=== PATIENT | female | born 2005 | race Caucasian/White ===

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

== ENCOUNTER 2023-05-22 19:46 | Emergency (ER) | payer OTHER, SELFPAY ==
[2023-05-22 19:47] VITALS: BP 127/71; PULSE 72; RESP 12; TEMP 36.8; O2SAT 98; BMI 24.9
--- NOTE | 2023-05-22 19:55 | HMH.EDGENADL ---
Discharge Plan Disposition Patient Disposition: Home, Self-Care Prescriptions Prescriptions: No Action Classic 28 mg iron- 800 mcg tablet 1 tab PO DAILY ferrous sulfate 325 mg (65 mg iron) tablet 325 mg PO DAILY ferrous sulfate 325 mg (65 mg iron) Tablet 325 mg PO BID Qty: 60 1RF ibuprofen 400 mg Tablet 800 mg PO Q6HP PRN (Reason: Mild To Moderate Pain) Qty: 30 1RF Referrals Follow up/Referrals: Santiago Prasad MD [Primary Care Provider] - See instructions Activity Restrictions/Add. Instructions Additional Instructions/Restrictions: Please follow-up with your primary care provider. Please return to the emergency department if you develop any new or worsening symptoms or become concerned for your health. Clinical Impressions Clinical Impression: Traumatic ecchymosis of hand Qualifiers: Encounter type: initial encounter Laterality: right Qualified Code(s): S60.221A - Contusion of right hand, initial encounter Discharge ED Provider: Beto Girard General Adult HPI General Chief complaint: Extremity Injury, Upper Stated complaint: [id number] LT hand inj Time Seen by Provider: 05/22/23 19:49 History of Present Illness HPI narrative: 18-year-old female previously healthy presents with left hand pain and swelling after punching a wall. Reports no numbness or tingling. Orts pain with range of motion. Denies other injuries. Related Data Home Medications Medication Instructions Recorded Confirmed vits no.126-ferrous fum 1 tab PO DAILY Supplement 10/13/21 07/03/22 28 mg iron-folic acid 800 mcg tablet (Classic ) ferrous sulfate 325 mg (65 mg 325 mg PO DAILY Supplement 05/11/22 07/03/22 iron) tablet Previous Rx's Medication Instructions Recorded ferrous sulfate 325 mg (65 mg 325 mg PO BID #60 tabs 05/14/22 iron) tablet ibuprofen 400 mg tablet 800 mg PO Q6HP PRN Mild To 05/14/22 Moderate Pain #30 tabs Allergies Allergy/AdvReac Type Severity Reaction Status Date / Time No Known Allergies Allergy Verified 07/03/22 16:14 [facility] Disclaimer: The information contained in this section may have been updated after the patient was seen, as this information can be updated by other users. Medical History (Updated 05/22/23 @ 20:36 by Beto Girard MD) Allergic rhinitis Urinary tract infection XXY identified by routine karyotyping Surgical History History of tympanostomy tube placement Social History Smoking Status: Current every day smoker alcohol intake: never substance use type: denies use current occupational status: employed Travel in the last 8 weeks: None household members: family ROS Obtained: Yes All systems reviewed & no additional complaints except as documented Physical Exam General General appearance: alert and in no apparent distress Head Head exam: atraumatic and normocephalic Eye Eye exam: Present normal appearance, PERRL and EOMI ENT ENT exam: Present normal oropharynx and normal external ear exam Neck Neck exam: Present normal inspection and full ROM Chest Chest inspection: Present normal inspection and symmetric chest wall rise; Absent tenderness Respiratory Respiratory exam: Present normal lung sounds bilaterally; Absent respiratory distress Cardiovascular Cardiovascular exam: Present regular rate and normal rhythm Abdominal Exam Abdominal exam: Present soft; Absent distention, tenderness or guarding Extremities Exam Extremities exam: Present other (Focal swelling over left MCP. Intact distal neurovascular exam, no evidence of ligamentous injury) Back Exam Back exam: Present normal inspection; Absent tenderness Neurological Exam Neurological exam: Present alert and oriented X3; Absent motor sensory deficit Psychiatric Psychiatric exam: Present normal affect and normal mood Skin Skin exam:
--- NOTE | 2023-05-22 20:00 | XR_ITS ---
PROCEDURE INFORMATION: Exam: XR Left Hand Exam date and time: 05/22/2023 8:00 PM Age: 18 years old Clinical indication: Injury or trauma; Other: Punching injury; Blunt trauma (contusions or hematomas); Hand; Left; Additional info: Punching injury, 3rd mcp joint pain TECHNIQUE: Imaging protocol: Radiologic exam of the left hand. Views: 3 or more views. COMPARISON: No relevant prior studies available. FINDINGS: Bones/joints: Normal. Soft tissues: Normal. IMPRESSION: No acute findings.
[2023-05-22 20:41] VITALS: BP 109/72; PULSE 80; RESP 16; TEMP 36.8; O2SAT 97
== END 2023-05-22 20:42 | disposition home or self-care (01) ==
PROVIDERS: Emergency Provider Emergency Medicine; PCP Family Medicine
DX: S60.222A Contusion of left hand, initial encounter (principal); J30.9 Allergic rhinitis, unspecified; W22.8XXA Striking against or struck by other objects, initial encounter
CPT/HCPCS: 73130; 99283

== ENCOUNTER 2023-05-28 07:17 | Emergency (ER) | payer OTHER, SELFPAY ==
[2023-05-28 07:26] VITALS: BP 112/68; PULSE 91; O2SAT 97
[2023-05-28 07:27] VITALS: BP 112/68; PULSE 86; RESP 19; TEMP 36.8; O2SAT 97; BMI 24.9
[2023-05-28 07:28] LABS: Coronavirus 19, PCR Not Detected (NotDetected); Influenza A, PCR Not Detected (NotDetected); Influenza B, PCR Not Detected (NotDetected)
[2023-05-28 07:30] VITALS: BP 109/68; PULSE 94; O2SAT 96
[2023-05-28 07:36] LABS: Microscopic, Urine URINE MICROSCOPIC (MICROSCOPIC)
--- NOTE | 2023-05-28 07:37 | ED_ITS ---
Discharge Plan Disposition Patient Disposition: Home, Self-Care Condition: Good Prescriptions Prescriptions: New ondansetron 4 mg tablet,disintegrating 4 mg PO Q8H PRN (Reason: nausea and vomiting) 4 Days Qty: 12 0RF No Action buspirone 7.5 mg tablet 7.5 mg PO BID Patient Comments: TAKE 1 TABLET BY MOUTH TWICE DAILY Referrals Follow up/Referrals: Santiago Prasad MD [Primary Care Provider] - See instructions Activity Restrictions/Add. Instructions Additional Instructions/Restrictions: You were evaluated in the emergency department today. You tested negative for COVID, flu, and strep, but we feel that you likely have an upper respiratory infection. Please follow-up closely with your primary care provider. Take Tylenol and ibuprofen at home as needed for pain. We are providing you a prescription for Zofran to take as needed for nausea and vomiting. Hydrate is much as possible. Return to the emergency department for new or worsening symptoms. Clinical Impressions Clinical Impression: Acute viral syndrome Stand Alone Forms Stand Alone Forms: Work/School Release Instructions Patient Instructions: DI for Viral Syndrome Discharge ED Provider: Khadijah Joiner General Adult HPI General Chief complaint: Upper Respiratory Infection Stated complaint: vomitting, headache, body aches Time Seen by Provider: 05/28/23 07:23 Mode of Arrival: Ambulatory Source of Information: Patient Limitations: No Limitations Description of Symptoms (Recalled from ER Triage Doc. by RN): pt to ed c/o vomiting and body aches that started this morning. pt states shes had a flu exposure at work. History of Present Illness HPI narrative: This patient is a 18-year-old female who denies significant past medical history presenting to the emergency department for evaluation with concern for headache and vomiting that started this morning. She states that she woke up with bodyaches and it took her longer to get out of bed than normal. She states that she has been exposed to flu at work, and multiple people of tested positive at work. She complains of mild cough and congestion, but no sore throat, significant abdominal pain, dysuria, polyuria, changes bowel movements, or other concerns. Related Data Home Medications Medication Instructions Recorded Confirmed buspirone 7.5 mg tablet 7.5 mg PO BID 05/28/23 05/28/23 Previous Rx's Medication Instructions Recorded ondansetron 4 mg disintegrating 4 mg PO Q8H PRN nausea and 05/28/23 tablet vomiting 4 days #12 tabs Allergies Allergy/AdvReac Type Severity Reaction Status Date / Time No Known Allergies Allergy Verified 07/03/22 16:14 [facility] Disclaimer: The information contained in this section may have been updated after the patient was seen, as this information can be updated by other users. Medical History Allergic rhinitis Urinary tract infection XXY identified by routine karyotyping Surgical History History of tympanostomy tube placement Social History Smoking Status: Never smoker alcohol intake: never substance use type: denies use current occupational status: employed Travel in the last 8 weeks: None household members: family ROS Obtained: Yes All systems reviewed & no additional complaints except as documented Physical Exam General General appearance: alert and in no apparent distress Head Head exam: atraumatic and normocephalic Eye Eye exam: Present normal appearance, PERRL and EOMI ENT ENT exam: Present normal exam, normal oropharynx, mucous membranes moist and normal external ear exam Neck Neck exam: Present normal inspection, full ROM and trachea midline; Absent tenderness Chest Chest inspection: Present normal inspection and symmetric chest wall rise; Absent tenderness Respiratory Respiratory exam: Present normal lung sounds bilaterally; Absent respiratory distress, wheezes, stridor or accessory muscle use Cardiovascular Cardiovascular exam: Present regular rate and normal rhythm Abdominal Exam Abdominal exam: Present soft; Absent distention, tenderness or guarding Extremities Exam Extremities exam: Present normal inspection, full ROM and normal capillary refill; Absent tenderness or edema Back Exam Back exam: Present normal inspection and full ROM; Absent tenderness Neurological Exam Neurological exam: Present alert, oriented X3, CN II-XII intact and normal gait; Absent motor sensory deficit Psychiatric Psychiatric exam: Present normal affect and normal mood Skin Skin exam: Present warm and dry Medical Decision Making Medical Records Medical records reviewed: Yes I reviewed the patient's medical records. Rudy Inquiry Pt receiving controlled substance: No Vital Signs: 05/28/23 07:27 05/28/23 07:26 05/28/23 07:30 Temperature 98.2 F Temperature Source Temporal Artery Scan Pulse Rate 91 H 94 H Pulse Rate [Left Radial] 86 Respiratory Rate 19 Blood Pressure 112/68 109/68 L Blood Pressure [Right Arm] 112/68 Blood Pressure Mean Blood Pressure Mean [Right Arm] 82 02 Sat by Pulse Oximetry 97 97 96 Oxygen Delivery Method Room Air 05/28/23 08:00 05/28/23 08:30 05/28/23 08:55 Temperature 98.2 F Temperature Source Oral Pulse Rate 73 87 84 Pulse Rate [Left Radial] Respiratory Rate 18 20 Blood Pressure 104/68 L 111/61 112/74 Blood Pressure [Right Arm] Blood Pressure Mean 75 Blood Pressure Mean [Right Arm] 02 Sat by Pulse Oximetry 98 Oxygen Delivery Method Room Air Lab Data Lab results reviewed: Yes I reviewed the patient's lab results. Lab Results 05/28/23 07:21: Urine Color Yellow, Urine Appearance Clear, Urine pH 7.0, Ur Specific [place] 1.020, Urine Protein Negative, Urine Glucose (UA) Negative, Urine Ketones Negative, Urine Blood Negative, Urine Nitrate Negative, Urine Bilirubin Negative, Urine Urobilinogen 1.0, Ur Leukocyte Esterase Negative, Urine RBC None, Urine WBC Occasional, Ur Squamous Epith Cells 3-5, Urine Bacteria Trace, Urine HCG, Qual Negative 05/28/23 07:25: SARS-CoV-2 (PCR) Not detected, Influenza A Untype (PCR) Not detected, Influenza Type B (PCR) Not detected 05/28/23 08:15: Group A Strep Rapid Negative Orders (Tests/Meds): ED MEDICATIONS Discontinued Medications Generic Name Dose Route Start Last Admin Trade Name Freq PRN Reason Stop Dose Admin Acetaminophen 1,000 mg 05/28/23 07:34 05/28/23 07:51 Acetaminophen 500mg Tab PO 05/28/23 07:35 1,000 mg ONCE ONE Administration Ibuprofen 800 mg 05/28/23 07:34 05/28/23 07:51 Ibuprofen 400 Mg Tablet PO 05/28/23 07:35 800 mg ONCE ONE Administration Ondansetron HCl 4 mg 05/28/23 07:34 05/28/23 07:52 Ondansetron 4mg Odt SL 05/28/23 07:35 4 mg ONCE ONE Administration ORDERS Category Date Time Status Rapid PCR Covid and Flu A/B Stat Lab 05/28/23 07:25 Completed Strep Scrn Group A (Rapid) Stat Lab 05/28/23 08:15 Completed Urinalysis and Microscopic Stat Lab 05/28/23 07:21 Completed Urine , HCG Qual. Stat Lab 05/28/23 07:21 Completed Strep Screen Confirmation Stat Micro 05/28/23 08:15 Received Medical Decision Narrative: In summary, this patient is a 18-year-old female presenting to the Emergency Department for evaluation of cough, congestion, body aches, and vomiting. Differential diagnoses considered include but are not limited to viral syndrome, viral gastroenteritis, bacterial enteritis, urinary tract infection. Ruling out the most morbid conditions drove assessment. On exam, the patient is well-appearing with no pharyngeal exudates, abdominal tenderness, or other concerns. Workup included urinalysis, COVID/flu swab, and strep swabs. Based on reassuring exam and history, I do not feel that other labs or imaging are indicated at this time. On reassessment, the patient is resting comfortably with no acute concerns or complaints. Patient is negative for COVID, flu, and strep. I feel that she likely has another viral upper respiratory infection. Urine is not concerning for infection. At this time, I feel that she is appropriate for discharge with instructions for supportive management and strict return precautions. She was discharged in stable condition after all questions were answered. Critical Care Critical Care Time Critical Care Time: No
[2023-05-28 07:44] LABS: Appearance,Urine CLEAR (Clear); Bilirubin,Urine Negative (Negative); Blood, Urine Negative (Negative); Color,Urine YELLOW (Yellow); Glucose,Urine (UA) Negative (Negative); Ketones,Urine Negative (Negative); Leukocyte Esterase,Urine Negative (Negative); Nitrate,Urine Negative (Negative); Protein,Urine Negative (Negative)
[2023-05-28 07:48] LABS: Urine Pregnancy, HCG Qual. Negative (Negative)
[2023-05-28] MEDS: IBUPROFEN 400 MG TABLET 800 MG PO (07:51)
[2023-05-28] MEDS: ACETAMINOPHEN 500MG TAB 1000 MG PO (07:51)
[2023-05-28] MEDS: ONDANSETRON 4MG ODT 4 MG SL (07:52)
[2023-05-28 08:00] VITALS: BP 104/68; PULSE 73; RESP 18
--- NOTE | 2023-05-28 08:17 | PC.NURSE ---
strep swab sent to lab
[2023-05-28 08:30] VITALS: BP 111/61; PULSE 87; O2SAT 98
[2023-05-28 08:36] LABS: Bacteria,Urine Trace /lpf; WBC,Urine Occasional #/hpf (0-3)
[2023-05-28 08:40] LABS: Strep Scrn Group A (Rapid) Negative (Negative)
[2023-05-28 08:55] VITALS: BP 112/74; PULSE 84; RESP 20; TEMP 36.8; O2SAT 98
== END 2023-05-28 08:56 | disposition home or self-care (01) ==
PROVIDERS: Emergency Provider Emergency Medicine; PCP Family Medicine
DX: R51.9 Headache, unspecified (principal); R11.10 Vomiting, unspecified; B34.9 Viral infection, unspecified; Z11.52 Encounter for screening for COVID-19
CPT/HCPCS: 81001; 81025; 87430; 87636; 99285

== ENCOUNTER 2024-01-25 15:48 | Outpatient (CLI) | payer OTHER, SELFPAY ==
--- NOTE | 2024-01-25 15:49 | US_ITS ---
PROCEDURE: US TRANSVAGINAL CLINICAL INDICATION: Pelvic Pain COMPARISON: No exams were available for comparison FINDINGS: Transvaginal sonographic images of the pelvis were obtained. UTERUS: 8.0cm x 4.9 cmx 3.0cm anteverted with a combined endometrial thickness of 3.5mm. There is a small echogenic focus within the endometrium. There appears to be fluid at the vaginal vault adjacent to the cervix. There is a small amount of fluid in the peritoneum adjacent to the fundus of the uterus. LEFT OVARY: 3.0cmx2.6 cm x1.6cm with a volume of 6.4ml. There is a dominant follicle measuring 1.9 cm. There are multiple small peripheral follicles that appear polycystic. RIGHT OVARY: 3.6 cmx 1.9 cmx1.8 cm with a volume of 6.6ml. There are several small peripheral follicles in the right ovary. There is a dominant follicle that measures 1.3 cm. Both ovaries are seen and appear normal. Doppler flow to both ovaries are seen. There is a small amount of fluid in the cul-de-sac. IMPRESSION: 1. Anteverted uterus normal in shape and size. The endometrium is thin. 2. Both ovaries are seen and appear normal. The left ovary appears more polycystic than the right ovary. There is a dominant follicle in each ovary. 3. There is a small amount of fluid adjacent to the fundus of the uterus in the peritoneum. 4. There is a small amount of fluid in the cul-de-sac. 5. There appears to be fluid in the vagina edge a sent to the cervix. Dictated by: Colin Rausch MD 01/26/2024 10:59 Colin Rausch MD in [place] 01/26/2024 10:59
== END 2024-01-25 23:59 | disposition home or self-care (01) ==
LOC: RAD 15:49
PROVIDERS: PCP Obstetrics & Gynecology; Visit Provider Obstetrics & Gynecology
DX: R10.2 Pelvic and perineal pain (principal)
CPT/HCPCS: 76830

== ENCOUNTER 2024-07-11 17:57 | Emergency (ER) | payer OTHER, SELFPAY ==
[2024-07-11 18:05] VITALS: BP 130/68; PULSE 81; RESP 18; TEMP 36.9; O2SAT 97; BMI 22.6
--- NOTE | 2024-07-11 18:19 | ED_ITS ---
Discharge Plan Disposition Patient Disposition: Home, Self-Care Prescriptions Prescriptions: New amoxicillin 500 mg tablet 500 mg PO TID 10 Days Qty: 30 0RF methylprednisolone 4 mg Tablets,Dose Pack 4 mg PO DIRECTED 6 Days Qty: 21 0RF Rx Instructions: Take 1 pack as directed for 6 days [id number] [Bromfed DM] 2-30-10 mg/5 mL Syrup 5 ml PO Q6H PRN (Reason: Cough) Qty: 240 0RF No Action Nexplanon 68 mg implant 1 implant subdermal ONCE Referrals Follow up/Referrals: Provider,Referral, MD [Primary Care Provider] - See instructions Activity Restrictions/Add. Instructions Additional Instructions/Restrictions: Drink plenty of fluids. Take tylenol or ibuprofen for pain or fever. Take the medications as directed. Follow up with your regular doctor. GO TO THE ER FOR ANY WORSENING SYMPTOMS Clinical Impressions Clinical Impression: Middle ear infection Instructions Patient Instructions: Middle Ear Infection Print Language Print Language: [place] Discharge ED Provider: Aleksandar Wellington [facility] General Stated complaint: Right earache Mode of Arrival: Ambulatory Source of Information: Patient Limitations: No Limitations Time Seen by Provider: 07/11/24 18:18 Description of Symptoms (Recalled from Triage Doc. by RN): PATIENT C/O VOMITING, DIARRHEA, AND LOW-GRADE FEVER THAT STARTED LAST NIGHT AND RIGHT EAR PAIN WITH HEADACHE X 2-3 DAYS HEENT Symptoms (Recalled from RN notes): Yes Resp Symptoms (Recalled from RN notes): No Skin Symptoms (Recalled from RN notes): No MS Symptoms (Recalled from RN notes): No Functional Status (Recalled from RN notes): WNL Related Data Home Medications ?Medication ?Instructions ?Recorded ?Confirmed etonogestrel 68 mg subdermal 1 implant subdermal ONCE 01/22/24 07/11/24 implant (Nexplanon) Previous Rx's ?Medication ?Instructions ?Recorded amoxicillin 500 mg tablet 500 mg PO TID 10 days #30 tabs 07/11/24 [id number]-rhiewkssvixbtkw-BC 5 ml PO Q6H PRN Cough #240 mL 07/11/24 2 mg-30 mg-10 mg/5 mL oral syrup (Bromfed DM) methylprednisolone 4 mg tablets in 4 mg PO DIRECTED 6 days #21 tabs 07/11/24 a dose pack Allergies Allergy/AdvReac Type Severity Reaction Status Date / Time No Known Allergies Allergy Verified 04/15/24 15:38 Worker's Comp Is this a Worker's Comp case?: No [facility] Disclaimer: The information contained in this section may have been updated after the patient was seen, as this information can be updated by other users. Medical History Allergic rhinitis Urinary tract infection XXY identified by routine karyotyping G1 fetus NIPT result: XXY fetus Declines CVS or amniocentesis Surgical History History of tympanostomy tube placement Social History Smoking Status: Never smoker alcohol intake: never substance use type: denies use current occupational status: employed Travel in the last 8 weeks: None household members: family Have you lived/traveled outside US in past 30 days?: No Contact w/someone who lives/traveled outside US past 30 days?: No Exposure to someone with infectious disease in past 14 days?: No Do you have a fever (greater than 100.4 F or 38 C)?: No Have you tested positive for COVID-19: No Exposed to someone with COVID-19 in past 14 days?: No Do you have a sore throat?: No Do you have a cough?: No Do you have any weakness?: No Do you have any diarrhea?: No Are you experiencing any unusual bleeding?: No Do you have any muscle aches/pain?: No Do you have any abdominal pain?: No Are you experiencing loss of taste or smell?: No ROS Obtained: Yes All systems reviewed & no additional complaints except as documented Constitutional Constitutional: Denies chills, Reports fever(s) and Reports poor appetite Eyes Eyes: Denies eye discharge ENT Ears, Nose, Mouth, and Throat: Denies ear discharge, Reports otalgia, Denies hearing loss, Denies sinus pain and Reports sore throat Cardiovascular Cardiovascular: Denies chest pain and Denies dyspnea Respiratory Respiratory: Denies chest congestion, Reports cough and Denies dyspnea Gastrointestinal Gastrointestingal: Denies abdominal pain, diarrhea, nausea or vomiting Musculoskeletal Musculoskeletal: Denies arthralgias Integumentary/Breasts Skin/Breast: Denies rash Physical Exam General General appearance: alert and in no apparent distress Head Head exam: atraumatic, normocephalic and normal inspection Eye Eye exam: Present normal appearance; Absent PERRL or EOMI ENT ENT exam: Present mucous membranes moist and normal external ear exam Expanded ENT Exam TM/Canal exam: Bilateral TM: erythema, bulging and effusion Nose exam: Absent sinus tenderness Nasal speculum exam: Bilateral: normal Mouth exam: Present normal external inspection and other; Absent drooling Teeth exam: Present normal inspection Throat exam: Present tonsillar erythema and tonsillomegaly Neck Neck exam: Present normal inspection, full ROM and trachea midline; Absent tenderness, meningismus or lymphadenopathy Chest Chest inspection: Present normal inspection and symmetric chest wall rise; Absent tenderness Respiratory Respiratory exam: Present normal lung sounds bilaterally; Absent respiratory distress, wheezes or stridor Cardiovascular Cardiovascular exam: Present regular rate, normal rhythm and normal heart sounds; Absent tachycardia or irregular rhythm Abdominal Exam Abdominal exam: Present soft and normal bowel sounds; Absent distention, tenderness, guarding, rebound or rigidity Extremities Exam Extremities exam: Present normal inspection and normal capillary refill; Absent tenderness, joint swelling or calf tenderness Back Exam Back exam: Present normal inspection and full ROM; Absent tenderness, CVA tend erness (R) or CVA tenderness (L) Neurological Exam Neurological exam: Present alert, oriented X3, CN II-XII intact, normal gait and reflexes normal; Absent motor sensory deficit Psychiatric Psychiatric exam: Present normal affect and normal mood Skin Skin exam: Present warm, dry, intact and normal color Lymphatic Lymphatic Findings: no adenopathy Medical Decision Making Medical Records Medical records reviewed: No I reviewed the patient's medical records. Screening: Per USPSTF and CDC recommendations, given the prevalence of disease in our region, it is our hospital?s policy to screen for HIV and viral Hepatitis for all patients aged 18 and over and those with ongoing risk factors. Rudy Inquiry Pt receiving controlled substance: No Vital Signs: 07/11/24 18:05 Temperature 98.4 F Temperature Source Oral Pulse Rate [Left Brachial] 81 Respiratory Rate 18 Blood Pressure [Left Arm] 130/68 Blood Pressure Mean [Left Arm] 88 Blood Pressure Source [Left Arm] Automatic Cuff Blood Pressure Position [Left Arm] Sitting 02 Sat by Pulse Oximetry 97 Oxygen Delivery Method Room Air
[2024-07-11 18:42] VITALS: BP 130/68; PULSE 81; RESP 18; TEMP 36.9; O2SAT 97
== END 2024-07-11 18:44 | disposition home or self-care (01) ==
PROVIDERS: Emergency Provider Nurse Practitioner Family
DX: H66.90 Otitis media, unspecified, unspecified ear (principal)
CPT/HCPCS: 99212; G0381

== ENCOUNTER 2024-11-22 15:26 | Emergency (ER) | payer OTHER, SELFPAY ==
--- NOTE | 2024-11-22 15:29 | ED_ITS ---
<Statement entered by Pablito Geiger MD - 11/22/24 23:22> I was consulted by the URVASHI, and we discussed the complexity of the problems being addressed. I approved the treatment and management plan for this patient's care in the emergency department, thus performing a substantive portion of the medical decision making. Pablito Geiger MD, PATRICIA, FACEP Discharge Plan Disposition Patient Disposition: Home, Self-Care Condition: Good Prescriptions Prescriptions: No Action Nexplanon 68 mg implant 1 implant subdermal ONCE amoxicillin 500 mg tablet 500 mg PO TID 10 Days Qty: 30 0RF methylprednisolone 4 mg Tablets,Dose Pack 4 mg PO DIRECTED 6 Days Qty: 21 0RF Rx Instructions: Take 1 pack as directed for 6 days [id number]-xpoxasjxa-VQ [Bromfed DM] 2-30-10 mg/5 mL Syrup 5 ml PO Q6H PRN (Reason: Cough) Qty: 240 0RF Referrals Follow up/Referrals: Radhames Welch DO [Staff Physician, Orthopedics] - See instructions Provider,Referral, [Primary Care Provider, Medical] - See instructions Activity Restrictions/Add. Instructions Additional Instructions/Restrictions: As we discussed I recommend Tylenol alternating with Motrin for pain and swelling. Also recommend icing your finger to keep the swelling down. If you have any persistent or new symptoms I have you the name of the orthopedic surgeon. If you have any new or worsening signs or symptoms return to the ER as needed. Clinical Impressions Clinical Impression: Hematoma of middle finger Instructions Patient Instructions: Animal Bites Print Language Print Language: [place] Discharge ED Provider: Pablito Geiger General Adult HPI General Chief complaint: Animal Bite Stated complaint: AO 5-31 dog bite on finger Time Seen by Provider: 11/22/24 15:29 History of Present Illness HPI narrative: Patient presents for evaluation of a right finger injury. Patient was playing with her dog which is a pitbull and the dog accidentally caught her right middle finger in its mouth with a toy. Patient has had pain but there is no break of the skin or penetration but she reports that it she cannot move it now. She denies any loss of sensory. Location is at the IP joint of the right third digit. He has no other injury Related Data Home Medications ?Medication ?Instructions ?Recorded ?Confirmed etonogestrel 68 mg subdermal 1 implant subdermal ONCE 01/22/24 07/11/24 implant (Nexplanon) Previous Rx's ?Medication ?Instructions ?Recorded amoxicillin 500 mg tablet 500 mg PO TID 10 days #30 ta bs 07/11/24 mlalyxwxcmwgkkd-jejqwnnpkvtvgmf-TH 5 ml PO Q6H PRN Cou gh #240 mL 07/11/24 2 mg-30 mg-10 mg/5 mL oral syrup (Bromfed DM) methylprednisolone 4 mg tablets in 4 mg PO DIRECTED 6 days #21 tabs 07/11/24 a dose pack Allergies Allergy/AdvReac Type Severity Reaction Status Date / Time No Known Allergies Allergy Verified 04/15/24 15:38 [facility] Disclaimer: The information contained in this section may have been updated after the patient was seen, as this information can be updated by other users. Medical History Allergic rhinitis Urinary tract infection XXY identified by routine karyotyping G1 fetus NIPT result: XXY fetus Declines CVS or amniocentesis Surgical History History of tympanostomy tube placement Social History Smoking Status: Current every day smoker alcohol intake: never substance use type: denies use current occupational status: employed Travel in the last 8 weeks?: None household members: family Have you lived/traveled outside US in past 30 days?: No Contact w/someone who lives/traveled outside US past 30 days?: No Exposure to someone with infectious disease in past 14 days?: No Do you have a fever (greater than 100.4 F or 38 C)?: No Have you tested positive for COVID-19?: No Exposed to someone with COVID-19 in past 14 days?: No Do you have a sore throat?: No Do you have a cough?: No Do you have any weakness?: No Do you have any diarrhea?: No Are you experiencing any unusual bleeding?: No Do you have any muscle aches/pain?: No Do you have any abdominal pain?: No Are you experiencing loss of taste or smell?: No Other Medical History Have you received the Flu Vaccine for this season: No Have you received the Pneumonia Vaccine: No ROS Obtained: Yes Systems reviewed as appropriate & no additional complaints except as documented Physical Exam General General appearance: alert Respiratory Respiratory exam: Present normal lung sounds bilaterally Cardiovascular Cardiovascular exam: Present regular rate Neurological Exam Neurological exam: Present alert and oriented X3 Medical Decision Making Medical Records Screening: Per USPSTF and CDC recommendations, given the prevalence of disease in our region, it is our hospital?s policy to screen for HIV and viral Hepatitis for all patients aged 18 and over and those with ongoing risk factors. Rudy Inquiry Pt receiving controlled substance: No Vital Signs: 11/22/24 15:37 11/22/24 16:00 11/22/24 16:30 Temperature 97.9 F Temperature Source Oral Pulse Rate 71 76 Pulse Rate [Left] 65 Respiratory Rate 16 Blood Pressure 106/59 L 107/62 L Blood Pressure [Right Arm] 118/70 Blood Pressure Mean [Right Arm] 86 Blood Pressure Source [Right Arm] Automatic Cuff Blood Pressure Position [Right Arm] Sitting 02 Sat by Pulse Oximetry 100 99 99 Oxygen Delivery Method Room Air Room Air Room Air 11/22/24 16:41 Temperature 98.1 F Temperature Source Pulse Rate 80 Pulse Rate [Left] Respiratory Rate 20 Blood Pressure 130/78 Blood Pressure [Right Arm] Blood Pressure Mean [Right Arm] Blood Pressure Source [Right Arm] Blood Pressure Position [Right Arm] 02 Sat by Pulse Oximetry Oxygen Delivery Method Room Air Orders (Tests/Meds): ED MEDICATIONS Discontinued Medications Generic Name Dose Route Start Last Admin Trade Name Freq PRN Reason Stop Dose Admin Acetaminophen 1,000 mg 11/22/24 15:42 11/22/24 15:48 Acetaminophen 500mg Tab PO 11/22/24 15:43 1,000 mg ONCE ONE Administration Ibuprofen 800 mg 11/22/24 15:42 11/22/24 15:48 Ibuprofen 400 Mg Tablet PO 11/22/24 15:43 800 mg ONCE ONE Administration ORDERS Category Date Time Status Finger XR right minimum 2 views [XR finger RT min 2V] Exams 11/22/24 15:41 Taken Stat HIV Combo Stat Lab 11/22/24 15:43 Ordered Hepatitis C Ab Qual. W/ RFX Stat Lab 11/22/24 15:43 Ordered Medical Decision Narrative: In summary patient is a 19-year-old female who presents to the emergency department for evaluation of right third digit injury. Patient is hemodynamically stable upon arrival, afebrile. Physical exam is remarkable for slight swelling at the IP joint but there is no skin break laceration or penetration. She is neurovascularly intact distally and there is no palpable bony deformity.. Differential diagnosis includes edema versus occult fracture versus other soft tissue injury etc. Initial workup will be conducted with plain film x-rays.. Initial interventions include Tylenol and ibuprofen. Patient is their own dog and is up-to-date on all shots and with no break in the skin tetanus not indicated. Initial workup reviewed by me and my informal trip that shows no acute bony injury prior to radiology read. Please see final read for formal interpretation. Upon repeat evaluation patient is able to flex and extend her finger under her own power. Given this patient is appropriate for instructions for symptomatic care including ice Tylenol and ibuprofen. I have given her Dr. Welch's name in case she has continued any worsening signs or symptoms. Critical Care Critical Care Time Critical Care Time: No
[2024-11-22 15:37] VITALS: BP 118/70; PULSE 65; RESP 16; TEMP 36.6; O2SAT 100; BMI 21.5
--- NOTE | 2024-11-22 15:41 | XR_ITS ---
PROCEDURE INFORMATION: Exam: XR Right Finger(s) Exam date and time: 11/22/2024 4:12 PM Age: 19 years old Clinical indication: Injury or trauma; Other: Dog bite; Other: bite; Additional info: Dog bite to ip joint third digit TECHNIQUE: Imaging protocol: Radiologic exam of the right fingers. Views: Minimum 2 views. COMPARISON: No relevant prior studies available. FINDINGS: Bones/joints: There is no evidence of acute fracture or dislocation. Joint spaces appear preserved. Soft tissues: There is soft tissue prominence involving the PIP soft tissues of the 3rd digit. No subcutaneous emphysema or radiopaque foreign bodies. IMPRESSION: 1. No acute posttraumatic osseous injury. 2. Soft tissue edema involving the 3rd digit, most prominent at the PIP joint.
[2024-11-22] MEDS: IBUPROFEN 400 MG TABLET 800 MG PO (15:48)
[2024-11-22] MEDS: ACETAMINOPHEN 500MG TAB 1000 MG PO (15:48)
[2024-11-22 16:00] VITALS: BP 106/59; PULSE 71; O2SAT 99
--- NOTE | 2024-11-22 16:14 | PC.NURSE ---
Xray's at bedside has been completed.
[2024-11-22 16:30] VITALS: BP 107/62; PULSE 76; O2SAT 99
[2024-11-22 16:41] VITALS: BP 130/78; PULSE 80; RESP 20; TEMP 36.7; O2SAT 98
== END 2024-11-22 16:42 | disposition home or self-care (01) ==
PROVIDERS: Emergency Provider Student in an Organized Health Care Education/Training Program
DX: S60.031A Contusion of right middle finger without damage to nail, initial encounter (principal); W54.0XXA Bitten by dog, initial encounter
CPT/HCPCS: 73140; 99283